=== PATIENT | female | born 1930 | race Caucasian/White ===

== ENCOUNTER 2018-04-29 09:46 | Outpatient (RCR) | payer MEDICARE, MEDICAID | END 2018-05-12 | LOC: M PT 09:46 | DX: I89.0 Lymphedema, not elsewhere classified (principal) | CPT/HCPCS: 97140 ==

== ENCOUNTER 2018-05-14 12:40 | Outpatient (RCR) | payer MEDICARE, MEDICAID | END 2018-06-11 | LOC: M PT 12:40 | DX: I89.0 Lymphedema, not elsewhere classified (principal) | CPT/HCPCS: 97140 ==

== ENCOUNTER 2018-11-30 11:38 | Outpatient (RCR) | payer MEDICARE, MEDICAID | END 2018-12-10 | LOC: M PT 11:38 | PROVIDERS: ATTEND Family Medicine | DX: I89.0 Lymphedema, not elsewhere classified (principal) ==

== ENCOUNTER 2019-06-14 12:06 | Outpatient (RCR) | payer MEDICARE, MEDICAID | END 2019-07-12 | LOC: M PT 12:06 | PROVIDERS: ATTEND Family Medicine | DX: I89.0 Lymphedema, not elsewhere classified (principal) ==

== ENCOUNTER 2019-09-12 15:33 | Outpatient (RCR) | payer MEDICARE, MEDICAID | END 2019-10-11 | LOC: M PT 15:33 | PROVIDERS: ATTEND Family Medicine | DX: Z51.89 Encounter for other specified aftercare (principal); I89.0 Lymphedema, not elsewhere classified ==